=== PATIENT | male | born 1955 | race Two or more races ===

== ENCOUNTER 2018-11-09 23:03 | Emergency (ER) | payer MEDICAID ==
[~2018-11-09] VITALS: Ht 170.2 cm; Wt 90.0 kg
[2018-11-09] MEDS ORDERED: SERT50TA12 PO (23:15)
[2018-11-09] MEDS ORDERED: LINA5TAB PO (23:15)
[2018-11-09] MEDS ORDERED: OMEG10005 PO (23:15)
[2018-11-09 23:23] LABS: GLUCOSE,POINT OF CARE 187 MG/DL (70-110)
[2018-11-10] MEDS ORDERED: AMOX TR/POT CLAV 875 MG/125 MG TABLET PO ONE (03:00)
[2018-11-10] MEDS ORDERED: BACITRACIN 0.9 GM PACKET OINTMENT TP ONE (03:00)
[2018-11-10 03:30] VITALS: BP 120/76
== END 2018-11-10 04:25 | disposition home or self-care (01) ==
LOC: EMS 23:05
DX: L03.031 Cellulitis of right toe (principal); E11.9 Type 2 diabetes mellitus without complications; E78.00 Pure hypercholesterolemia, unspecified; I10 Essential (primary) hypertension; Z79.899 Other long term (current) drug therapy

== ENCOUNTER 2019-10-19 11:51 | Emergency (ER) | payer MEDICAID ==
[~2019-10-19] VITALS: Ht 167.6 cm; Wt 72.7 kg
[~2019-10-19 11:51] MED LIST: LINA5TAB PO; OMEG10005 PO; SERT50TA12 PO
[2019-10-19] MEDS ORDERED: PIOG15TA6 PO (12:00)
[2019-10-19] MEDS ORDERED: LISI-661 PO (12:00)
[2019-10-19] MEDS ORDERED: ATOR20TA86 PO (12:00)
[2019-10-19] MEDS ORDERED: ASPI-728 PO (12:00)
[2019-10-19] MEDS ORDERED: METF-445 PO (12:00)
[2019-10-19] MEDS ORDERED: LOSA-30 PO (12:00)
[2019-10-19 12:07] LABS: GLUCOSE,POINT OF CARE 119 MG/DL (70-110)
[2019-10-19 12:56] LABS: BASOPHILS % (AUTO) 0.7 % (0.0-2.0); EOSINOPHILS % (AUTO) 2.3 % (1.0-6.0); HEMATOCRIT 40.5 % (41-53); HEMOGLOBIN 13.9 g/dL (13.5-17.5); LYMPHOCYTES # (AUTO) 1.8 K/uL (1.0-4.8); LYMPHOCYTES % (AUTO) 28.8 % (22.0-44.0); MEAN CORPUSCULAR HEMOGLOBIN 31.1 pg (26.0-34.0); MEAN CORPUSCULAR HGB CONC 34.3 G/dL (31.0-37.0); MEAN CORPUSCULAR VOLUME 91 fL (80-100); MONOCYTES # (AUTO) 0.5 K/uL (0.1-1.0); MONOCYTES % (AUTO) 8.5 % (2.0-9.0); NEUTROPHILS # (AUTO) 3.8 K/uL (1.8-7.7); NEUTROPHILS % (AUTO) 59.7 % (40.0-70.0); PLATELET COUNT (AUTO) 222 K/uL (150-450); RED BLOOD CELL COUNT(AUTO) 4.47 MIL/uL (4.50-5.90); RED CELL DISTRIBUTION WIDTH 13.1 % (11.5-14.5)
[2019-10-19 13:06] LABS: ANION GAP 8 mmol/L (8-16); CALCIUM, TOTAL 8.9 mg/dL (8.8-10.5); CARBON DIOXIDE 27 mmol/L (22-29); CHLORIDE 102 mmol/L (98-107); CREATININE 0.74 mg/dL (0.60-1.30); GLOMERULAR FILTR. RATE CALC > 60 mL/min (>60); GLUCOSE,RANDOM 120 mg/dL (70-110); POTASSIUM 3.9 mmol/L (3.5-5.1); SODIUM SERUM 137 mmol/L (136-145); UREA NITROGEN, BLOOD 13 mg/dL (7-18)
[2019-10-19 13:11] LABS: ALANINE AMINOTRANSFERASE 32 U/L (12-78); ALBUMIN 3.8 g/dL (3.4-5.0); ALKALINE PHOSPHATASE 88 U/L (46-116); ASPARTATE AMINOTRANSFERASE 14 U/L (15-37); BILIRUBIN,TOTAL 0.3 mg/dL (0.1-1.0); TOTAL PROTEIN, SERUM 7.1 g/dL (6.4-8.2)
[2019-10-19 13:12] LABS: APPEARANCE,URINE CLEAR (CLEAR); BILIRUBIN,URINE NEGATIVE (NEGATIVE); GLUCOSE, URINE (UA) NEGATIVE (NEGATIVE); KETONES,URINE NEGATIVE (NEGATIVE); LEUKOCYTE ESTERASE ,URINE NEGATIVE (NEGATIVE); NITRATE,URINE NEGATIVE (NEGATIVE); OCCULT BLOOD,URINE NEGATIVE (NEGATIVE); PROTEIN,URINE NEGATIVE (NEGATIVE); UROBILINOGEN,URINE 0.2 mg/dL (<=1.0)
[2019-10-19] MEDS ORDERED: SODIUM CHLORIDE 0.9% 100 ML ONE (13:42)
[2019-10-19] MEDS ORDERED: IOVERSOL 350 MG/ML 100 ML VIAL ONE (13:42)
[2019-10-19 14:46] VITALS: BP 118/78
== END 2019-10-19 15:13 | disposition home or self-care (01) ==
LOC: EMS 11:51
DX: K57.92 Diverticulitis of intestine, part unspecified, without perforation or abscess without bleeding (principal); E11.9 Type 2 diabetes mellitus without complications; E78.00 Pure hypercholesterolemia, unspecified; I10 Essential (primary) hypertension; Z79.82 Long term (current) use of aspirin; Z79.84 Long term (current) use of oral hypoglycemic drugs; Z79.899 Other long term (current) drug therapy
CPT/HCPCS: 36415; 74177; 80053; 81003; 82962; 85025; 99284; J7050; Q9967

== ENCOUNTER 2019-10-25 17:58 | Emergency (ER) | payer MEDICAID ==
[~2019-10-25] VITALS: Ht 172.7 cm; Wt 88.2 kg
[~2019-10-25 17:58] MED LIST changes: +ASPI-728 PO; +ATOR20TA86 PO; +LISI-661 PO; +LOSA-30 PO; +METF-445 PO; +PIOG15TA6 PO
[2019-10-25] MEDS ORDERED: METR500 PO (18:32)
[2019-10-25] MEDS ORDERED: CIPR-278 PO (18:32)
[2019-10-25 18:44] LABS: GLUCOSE,POINT OF CARE 97 MG/DL (70-110)
[2019-10-25 20:25] LABS: EOSINOPHILS % (AUTO) 2.9 % (1.0-6.0); HEMATOCRIT 44.5 % (41-53); LYMPHOCYTES % (AUTO) 32.4 % (22.0-44.0); MEAN CORPUSCULAR HEMOGLOBIN 30.7 pg (26.0-34.0); MEAN CORPUSCULAR HGB CONC 33.7 G/dL (31.0-37.0); MEAN CORPUSCULAR VOLUME 91 fL (80-100); MONOCYTES # (AUTO) 0.6 K/uL (0.1-1.0); MONOCYTES % (AUTO) 9.7 % (2.0-9.0); NEUTROPHILS # (AUTO) 3.4 K/uL (1.8-7.7); PLATELET COUNT (AUTO) 218 K/uL (150-450); RED BLOOD CELL COUNT(AUTO) 4.87 MIL/uL (4.50-5.90); RED CELL DISTRIBUTION WIDTH 13.7 % (11.5-14.5)
[2019-10-25 20:42] LABS: ANION GAP 9 mmol/L (8-16); CALCIUM, TOTAL 9.5 mg/dL (8.8-10.5); CARBON DIOXIDE 28 mmol/L (22-29); CHLORIDE 106 mmol/L (98-107); CREATININE 0.78 mg/dL (0.60-1.30); GLOMERULAR FILTR. RATE CALC > 60 mL/min (>60); GLUCOSE,RANDOM 115 mg/dL (70-110); POTASSIUM 4.4 mmol/L (3.5-5.1); SODIUM SERUM 143 mmol/L (136-145); UREA NITROGEN, BLOOD 13 mg/dL (7-18)
[2019-10-25 20:50] LABS: LACTIC ACID 1.3 mmol/L (0.4-2.0)
[2019-10-25 20:56] LABS: ALANINE AMINOTRANSFERASE 65 U/L (12-78); ALBUMIN 4.3 g/dL (3.4-5.0); ALKALINE PHOSPHATASE 93 U/L (46-116); ASPARTATE AMINOTRANSFERASE 33 U/L (15-37); BILIRUBIN,TOTAL 0.4 mg/dL (0.1-1.0); LIPASE 187 U/L (73-393); TOTAL PROTEIN, SERUM 7.6 g/dL (6.4-8.2)
[2019-10-25] MEDS ORDERED: IOVERSOL 320 MG/ML 100 ML VIAL ONE (22:34)
[2019-10-25] MEDS ORDERED: SODIUM CHLORIDE 0.9% 100 ML ONE (22:34)
[2019-10-25] MEDS ORDERED: KETOROLAC TROMETHAMINE 30 MG/ML VIAL IVP ONE (22:45)
[2019-10-26 00:09] VITALS: BP 125/87
== END 2019-10-26 00:55 | disposition home or self-care (01) ==
LOC: EMS 17:58
DX: R10.32 Left lower quadrant pain (principal); E11.9 Type 2 diabetes mellitus without complications; E78.00 Pure hypercholesterolemia, unspecified; I10 Essential (primary) hypertension; Z79.84 Long term (current) use of oral hypoglycemic drugs; Z79.899 Other long term (current) drug therapy; Z79.82 Long term (current) use of aspirin
CPT/HCPCS: 36415; 74177; 80053; 82962; 83605; 83690; 84484; 85025; 96374; 99285; G0480; J1885; J7050; Q9967